=== PATIENT | female | born 1995 | race American Indian/Alaskan Native ===

== ENCOUNTER 2016-08-01 18:35 | Emergency (ER) | payer MEDICAID ==
[2016-08-01 19:19] LABS: Basophils % (Auto) 0.6 % (0.0-1.8); Eosinophils % (Auto) 1.9 % (0.0-4.3); Hematocrit 37.7 % (30.3-42.9); Mean Corpuscular HGB Conc 32 % (30-34); Mean Corpuscular Hemoglobin 28 pg (28-32); Mean Corpuscular Volume 88 fl (79-97); Platelet Count 324 K/mm3 (140-440); Red Blood Count 4.27 M/mm3 (3.65-5.03); Red Cell Distribution Width 15.3 % (13.2-15.2); White Blood Count 8.2 K/mm3 (4.5-11.0)
[2016-08-01 19:36] LABS: Anion Gap 17 mmol/L; Blood Urea Nitrogen 7 mg/dL (7-17); Calcium 9.3 mg/dL (8.4-10.2); Carbon Dioxide 19 mmol/L (22-30); Chloride 99.5 mmol/L (98-107); Glucose 80 mg/dL (65-100); Potassium 3.7 mmol/L (3.6-5.0); Sodium 132 mmol/L (137-145)
[2016-08-01 21:28] VITALS: BP 129/82
[2016-08-01 21:41] LABS: Bacteria,Urine 1+ /HPF (Negative); Bilirubin,Urine NEG (Negative); Blood,Urine NEG (Negative); Ketones,Urine NEG (Negative); Leukocyte Esterase,Urine MOD (Negative); Mucus,Urine FEW /HPF; Nitrite,Urine NEG (Negative); Protein,Urine <15 mg/dL mg/dL (Negative); Urobilinogen,Urine < 2.0 mg/dL (<2.0)
--- NOTE | 2016-08-01 21:46 | Emergency Department Report ---
ED Female HPI - General Chief complaint: Urogenital-Female Stated complaint: /VAGINAL DISCHARGE Time Seen by Provider: 08/01/16 21:22 Source: patient, RN notes reviewed Mode of arrival: Ambulatory Limitations: No Limitations - History of Present Illness Initial comments: 21-year-old female presents to the emergency department complaining of vaginal discharge. Patient states that she is approximately 2 months . This is her second . 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 Patient states she has been having white vaginal discharge for the past 3 weeks. Initially there was no associated pain. Patient states that over the past 2 days she has been having intermittent abdominal cramping and diarrhea. There has been no vaginal bleeding, nausea, vomiting, or blood in her stool. There are no other complaints. MD Complaint: vaginal discharge -: Gradual, week(s) (3) Location: suprapubic Radiation: non-radiating Severity: mild Severity scale (0 -10): 2 Quality: cramping Consistency: intermittent Improves with: none Worsens with: none Are you Now?: Yes - Related Data Sexually active: Yes : 2 Para: 1 A: 0 Previous Rx's Medication Instructions Recorded Last Taken Type metroNIDAZOLE [Flagyl] 500 mg PO Q12HR #14 tab 08/01/16 Unknown Rx Allergies Allergy/AdvReac Type Severity Reaction Status Date / Time almond oil Allergy Angioedema Verified 05/01/16 21:53 banana [Banana] AdvReac Itching Verified 12/24/13 21:07 ED Review of Systems ROS: Stated complaint: /VAGINAL DISCHARGE Other details as noted in HPI Comment: All other systems reviewed and negative Gastrointestinal: abdominal pain, diarrhea Genitourinary: discharge ED Past Medical Hx - Past Medical History Previous Medical History?: Yes Hx Hypertension: No Hx Diabetes: No Hx Deep Vein Thrombosis: No Hx Renal Disease: No Hx Sickle Cell Disease: No Hx Seizures: No Hx Asthma: No Hx HIV: No Additional medical history: WPW ablation age 15 years, hyperthyroidism, - Surgical History Past Surgical History?: Yes Additional Surgical History: See PMH above, x 1 - Family History Family history: no significant - Social History Smoking Status: Never Smoker Substance Use Type: None - Medications Home Medications: Home Medications Medication Instructions Recorded Confirmed Last Taken Type metroNIDAZOLE [Flagyl] 500 mg PO Q12HR #14 tab 08/01/16 Unknown Rx ED Physical Exam - General Limitations: No Limitations General appearance: alert, in no apparent distress - Head Head exam: Present: atraumatic, normocephalic - Eye Eye exam: Present: normal appearance, PERRL, EOMI - ENT ENT exam: Present: normal exam, normal orophraynx, mucous membranes moist - Neck Neck exam: Present: normal inspection, full ROM. Absent: tenderness - Respiratory Respiratory exam: Present: normal lung sounds bilaterally. Absent: respiratory distress - Cardiovascular Cardiovascular Exam: Present: regular rate, normal rhythm, normal heart sounds - GI/Abdominal GI/Abdominal exam: Present: soft, normal bowel sounds. Absent: distended, tenderness - External exam: Present: normal external exam Speculum exam: Present: vaginal discharge (thin, white). Absent: cervical discharge, vaginal bleeding Bi-manual exam: Present: normal bi-manual exam - Extremities Exam Extremities exam: Present: normal inspection, full ROM. Absent: tenderness - Back Exam Back exam: Present: normal inspection, full ROM. Absent: tenderness - Neurological Exam Neurological exam: Present: alert, oriented X3. Absent: motor sensory deficit - Skin Skin exam: Present: warm, dry, intact ED Course Vital Signs 08/01/16 08/01/16 18:52 21:26 Temperature 98.3 F 98.3 F Pulse Rate 76 74 Respiratory 16 16 Rate Blood Pressure 115/72 Blood Pressure 129/82 [Right] O2 Sat by Pulse 100 100 Oximetry ED Medical Decision Making - Lab Data Result diagrams: 08/01/16 19:02 08/01/16 19:02 - Medical Decision Making Lab results reviewed and discussed with the patient. Patient will be discharged home at this time to follow up with her primary [employer] B[employer]NAGER. - Differential Diagnosis BV, Trichomonal infection, STI Critical care attestation.: If time is entered above; I have spent that time in minutes in the direct care of this critically ill patient, excluding procedure time. ED Disposition Clinical Impression: Bacterial vaginosis Disposition: DISCHARGED TO HOME OR SELFCARE Is pt being admited?: No Condition: Stable Instructions: Bacterial Vaginosis (ED) Prescriptions: metroNIDAZOLE [Flagyl] 500 mg PO Q12HR #14 tab Referrals: PRIMARY CARE,MD [Primary Care Provider] - 3-5 Days Forms: STI Treatment and Prevention Time of Disposition: 22:50
== END 2016-08-01 23:02 | disposition home or self-care (01) ==
LOC: ED 18:35
DX: N76.0 Acute vaginitis (principal); E05.90 Thyrotoxicosis, unspecified without thyrotoxic crisis or storm; Z91.018 Allergy to other foods; Z91.048 Other nonmedicinal substance allergy status
CPT/HCPCS: 36415; 80048; 81001; 85025; 87210; 87591; 99284

== ENCOUNTER 2019-10-24 13:54 | Emergency (ER) | payer MEDICAID ==
[2019-10-24] MEDS ORDERED: ONDANSETRON 4 MG/2 ML INJ IV ONE ×2 (15:35→16:38)
[2019-10-24] MEDS ORDERED: HYDROmorphone 1 MG/1 ML INJ IV ONE (15:35)
--- NOTE | 2019-10-24 16:38 | XRay Report ---
RIGHT SHOULDER 2 VIEWS INDICATION / CLINICAL INFORMATION: pain possible dislocation COMPARISON: None available. FINDINGS: BONES / JOINT(S): Subcoracoid dislocation humeral head. No bony injury. SOFT TISSUES: No significant abnormality. ADDITIONAL FINDINGS: None. Signer Name: Jignesh Moses MD Signed: 10/24/2019 4:33 PM Workstation Name: [id number]
[2019-10-24] MEDS ORDERED: MIDAZOLAM 5 MG/5 ML INJ MDV IV NR ×2 (17:00)
--- NOTE | 2019-10-24 17:29 | Emergency Department Report ---
ED Upper Extremity Inj HPI - General Chief Complaint: Extremity Injury, Upper Stated Complaint: RT SHOULDER INJURY Time Seen by Provider: 10/24/19 15:35 Source: EMS Mode of arrival: Stretcher Limitations: No Limitations - History of Present Illness Initial Comments: 24-year-old female the past medical history recurrent right shoulder dislocations and WPW presents to the hospital with complaints of right shoulder dislocation prior to arrival. Pain is 10/10 intensity worse with movement and palpation. Patient is right-hand dominant Initial pulse ox was 100% on room air not 57 as documented on her chart - Related Data Previous Rx's Medication Instructions Recorded Last Taken Type metroNIDAZOLE [Flagyl] 500 mg PO Q12HR #14 tab 08/01/16 Unknown Rx Ibuprofen [Motrin] 800 mg PO Q8HR PRN #20 tablet 10/24/19 Unknown Rx Allergies Allergy/AdvReac Type Severity Reaction Status Date / Time almond oil Allergy Angioedema Verified 05/01/16 21:53 banana [Banana] AdvReac Itching Verified 12/24/13 21:07 ED Review of Systems ROS: Stated complaint: RT SHOULDER INJURY Other details as noted in HPI Comment: All other systems reviewed and negative ED Past Medical Hx - Past Medical History Hx Hypertension: No Hx Diabetes: No Hx Deep Vein Thrombosis: No Hx Renal Disease: No Hx Sickle Cell Disease: No Hx Seizures: No Hx Asthma: No Hx HIV: No Additional medical history: WPW ablation age 15 years, hyperthyroidism, - Surgical History Additional Surgical History: See PMH above, x 1 - Social History Smoking Status: Never Smoker Substance Use Type: None - Medications Home Medications: Home Medications Medication Instructions Recorded Confirmed Last Taken Type metroNIDAZOLE [Flagyl] 500 mg PO Q12HR #14 tab 08/01/16 Unknown Rx Ibuprofen [Motrin] 800 mg PO Q8HR PRN #20 tablet 10/24/19 Unknown Rx ED Physical Exam - General Limitations: No Limitations - Other Other exam information: General: Moderate distress secondary to pain Head: Atraumatic Eyes: normal appearance ENT: Moist mucous membranes Neck: Normal appearance, no midline tenderness Chest: Clear to auscultation bilaterally CV: Regular rate and rhythm Abdomen: Soft, normal bowel sounds, nontender, nondistended, no rebound or guarding Back: Normal inspection Extremity: Right shoulder deformity with pain and limited movement Neuro: Alert O x 3, no facial asymmetry, speech clear, no gross motor sensory deficit Psych: Appropriate behavior Skin: No rash ED Course Vital Signs 10/24/19 10/24/19 10/24/19 16:18 16:40 16:45 Temperature Pulse Rate 79 Respiratory 18 18 20 Rate Blood Pressure 145/61 Blood Pressure 102/64 [Left] O2 Sat by Pulse 57 L 100 95 Oximetry 10/24/19 10/24/19 10/24/19 17:00 17:15 17:29 Temperature 98.4 F Pulse Rate 67 78 Respiratory 17 17 Rate Blood Pressure 132/72 132/72 Blood Pressure [Left] O2 Sat by Pulse 100 99 Oximetry - Reevaluation(s) Reevaluation #1: 10/24/19 17:29 Patient did not want to be sedated to receive shoulder reduction. Patient was provided Dilaudid 1 mg with 4 mg of Zofran. Versed initially ordered but then patient subsequently refused and therefore shoulder was reduced with Dilaudid only - Orthopedic Joint Reduction Joint #1 Consent Obtained: verbal consent Time Out Performed: Yes Side: right Joint Reduction Location: shoulder Analgesia: other (IV Dilaudid) Shoulder Technique Used (if applicable): other Post-Reduction Neuro Exam: intact Post-Reduction Vascular Exam: intact Post Reduction X-Ray Obtained: Yes Post Reduction X-Ray Results: reduced Splint Applied: Yes Patient Tolerated Procedure: well ED Medical Decision Making - Radiology Data Radiology results: report reviewed RIGHT SHOULDER 2 VIEWS INDICATION / CLINICAL INFORMATION: pain possible dislocation COMPARISON: None available. FINDINGS: BONES / JOINT(S): Subcoracoid dislocation humeral head. No bony injury. SOFT TISSUES: No significant abnormality. ADDITIONAL FINDINGS: None. Right shoulder one view INDICATION / CLINICAL INFORMATION: post reduction. COMPARISON: Exam done earlier on 10/24/2019 FINDINGS: Right shoulder alignment appears anatomic following reduction of the previously seen dislocation. - Medical Decision Making Successful reduction of shoulder with use of IV Dilaudid and for Zofran. Consci ous sedation was not needed and patient did not receive Versed. Patient placed in a shoulder immobilizer and will be discharged home with orthopedic follow-up Critical Care Time: No Critical care attestation.: If time is entered above; I have spent that time in minutes in the direct care of this critically ill patient, excluding procedure time. ED Disposition Clinical Impression: Recurrent dislocation, right shoulder Disposition: DC-01 TO HOME OR SELFCARE Is pt being admited?: No Does the pt Need Aspirin: No Condition: Stable Instructions: Shoulder Dislocation (ED) Additional Instructions: Take the medication as prescribed. Follow-up with your doctor or doctor/clinic provided. Return if symptoms worsen as indicated by your discharge instruc tions. Prescriptions: Ibuprofen [Motrin] 800 mg PO Q8HR PRN #20 tablet PRN Reason: Pain , Severe (7-10) Referrals: MIGUELITO BELLE MD [Staff Physician] - 3-5 Days (Orthopedic surgeon) Time of Disposition: 18:16
[2019-10-24 17:30] VITALS: BP 132/72
--- NOTE | 2019-10-24 18:12 | XRay Report ---
Right shoulder one view INDICATION / CLINICAL INFORMATION: post reduction. COMPARISON: Exam done earlier on 10/24/2019 FINDINGS: Right shoulder alignment appears anatomic following reduction of the previously seen dislocation. Signer Name: Dutch Smyth MD Signed: 10/24/2019 6:07 PM Workstation Name: [id number]
== END 2019-10-24 18:28 | disposition home or self-care (01) ==
LOC: ED 13:54
DX: M24.411 Recurrent dislocation, right shoulder (principal); E05.00 Thyrotoxicosis with diffuse goiter without thyrotoxic crisis or storm; Z98.890 Other specified postprocedural states; Z79.899 Other long term (current) drug therapy; Z91.018 Allergy to other foods
CPT/HCPCS: 23650; 73020; 73030; 96374; 96375; 96376; 99284; J1170; J2250; J2405